=== PATIENT | female | born 1960 | race Caucasian/White ===

== ENCOUNTER 2019-12-16 15:09 | Emergency (ER) | payer MEDICARE, BC, SELFPAY ==
[2019-12-16 15:33] VITALS: BP 135/58; PULSE 85; RESP 20; TEMP 37.2
--- NOTE | 2019-12-16 16:29 | ED.URI ---
HPI - URI/Sore Throat General Chief Complaint: Upper Respiratory Infection Stated Complaint: sore throat Time Seen by Provider: 12/16/19 16:29 Source: patient Mode of arrival: ambulatory Limitations: no limitations History of Present Illness HPI Narrative: Skye Simmons is a 59 yo female with a PMH of depression, hypothyroid, diabetes, GERD, HLD, who comes to urgent care with recurrent strep. Seen here and treated 2 weeks ago - tested positive for strep again- shr has had fever last 2 days Related Data Home Medications Medication Instructions Recorded Confirmed Bifidobacterium infantis [Align] 4 mg PO DAILY 12/02/19 12/16/19 antiox.mv [id number] 1 cap PO DAILY 12/02/19 12/16/19 [I-Caps] bupropion HCl 300 mg PO QAM 12/02/19 12/16/19 celecoxib 200 mg PO BID 12/02/19 12/16/19 cholecalciferol (vitamin D3) 2,000 unit PO DAILY 12/02/19 12/16/19 [Vitamin D3] cyanocobalamin (vitamin B-12) 1,000 mcg PO DAILY 12/02/19 12/16/19 [Vitamin B-12] diclofenac sodium 2 g TOPICAL BID 12/02/19 12/16/19 duloxetine 60 mg PO DAILY 12/02/19 12/16/19 fluoxetine 20 mg PO DAILY 12/02/19 12/16/19 levothyroxine 75 mcg PO DAILY 12/02/19 12/16/19 metformin 500 mg PO BID 12/02/19 12/16/19 mirabegron [Myrbetriq] 25 mg PO DAILY 12/02/19 12/16/19 modafinil [Provigil] 200 mg PO QAM 12/02/19 12/16/19 [id number] 1 tablet PO DAILY 12/02/19 12/16/19 [Centrum Silver Women] pantoprazole 40 mg PO DAILY 12/02/19 12/16/19 pregabalin [Lyrica] 75 mg PO BID 12/02/19 12/16/19 rosuvastatin 5 mg PO DAILY 12/02/19 12/16/19 sitagliptin [Januvia] 100 mg PO DAILY 12/02/19 12/16/19 Allergies Allergy/AdvReac Type Severity Reaction Status Date / Time Penicillins Allergy Unknown TONGUE Verified 12/16/19 15:44 PEG Review of Systems Review of Systems: Narrative: CONSTITUTIONAL: has fever, no chills, sweats. EYES: Denies visual changes, redness, discharge. ENT: Denies rhinorrhea, congestion, has sore throat, no otalgia. CARDIOVASCULAR: Denies chest pain, palpitations, edema. RESPIRATORY: Denies dyspnea, wheezing, cough GASTROINTESTINAL: Denies abdominal pain, nausea, vomiting, diarrhea. GENITOURINARY: Denies dysuria, hematuria, abnormal discharge SKIN: Denies rash or itching. MUSCULOSKELETAL: Denies acute back pain, joint pain, or myalgia. NEUROLOGIC: Denies numbness, or focal weakness. PSYCHIATRIC: Denies anxiety or depression. [facility] Family History Family History Other Diabetes mellitus Heart disease Hypertension Social History Social History (Updated 12/16/19 @ 16:38 by Nuha Castaneda CNP) Smoking status: Never smoker Alcohol intake: never Comments At time of signature, I agree with nursing past medical, surgical, social and family history. There is no relevant family history pertinent to the presenting complaint. blood pressure elevated probably due to patient illness although should follow-up with PCP Exam Narrative: Exam Narrative: GENERAL: This is a well-nourished, well-developed patient, in mild distress. HEAD: normocephalic, atraumatic. EYES: Sclera clear/white. Vision is grossly intact. EARS: External ears normal, auditory canals clear and without drainage, TMs normal without perforation. Hearing grossly intact. NOSE: External nose normal with no obvious nasal discharge, nares without redness, no rhinorrhea. THROAT: Mucous membranes moist, posterior pharynx erythema with exudate, tonsillar edema NECK: Neck supple, non-tender . CARDIOVASCULAR: Regular rate and rhythm without murmurs, gallops, or rubs. RESPIRATORY: Clear to auscultation. Breath sounds equal bilaterally. No wheezes, rales, or rhonchi. GASTROINTESTINAL: Abdomen soft, non-tender, nondistended. SKIN: warm, intact with no suspicious lesions or rash, good texture and turgor. NEURO: awake, alert, and oriented to person, place and time. There were no obvious focal neurologic abnormalities
== END 2019-12-16 16:51 | disposition home or self-care (01) ==
PROVIDERS: Emergency Provider Nurse Practitioner; PCP Internal Medicine
DX: J02.0 Streptococcal pharyngitis (principal); F32.9 Major depressive disorder, single episode, unspecified; E03.9 Hypothyroidism, unspecified; E11.9 Type 2 diabetes mellitus without complications; K21.9 Gastro-esophageal reflux disease without esophagitis; E78.5 Hyperlipidemia, unspecified
CPT/HCPCS: 87880; 99213; G0463